=== PATIENT | male | born 2000 | race African-American/Black ===

== ENCOUNTER 2022-12-11 13:56 | Emergency (ER) | payer OTHER ==
[~2022-12-11] VITALS: Ht 185.4 cm; Wt 93.3 kg
[2022-12-11 13:56] VITALS: BP 141/82; TEMP 98.1; O2SAT 99
== END 2022-12-11 18:10 | disposition home or self-care (01) ==
LOC: M ED 13:56
DX: M79.671 Pain in right foot (principal)